=== PATIENT | male | born 1945 | race Caucasian/White ===

== ENCOUNTER 2018-03-07 22:00 | Inpatient (IN) | payer SELFPAY, OTHER ==
[2018-03-07] MEDS: ASPIRIN (EC) 325 MG TAB PO (23:00)
[2018-03-08 00:14] LABS: ADD MAN DIFF? NO
[2018-03-08 00:16] LABS: BASOPHILS % 0.3 % (0.0-2.0); EOSINOPHILS % 0.3 % (0.0-7.0); HEMATOCRIT 39.4 % (42.0-52.0); HEMOGLOBIN 13.9 g/dl (14.0-18.0); LYMPHOCYTES # 0.9 10^3/ul (0.8-2.9); LYMPHOCYTES % 6.9 % (15.0-51.0); MEAN CORPUSCULAR HEMOGLOBIN 31.2 pg (29.0-33.0); MEAN CORPUSCULAR HGB CONC 35.3 g/dl (32.0-37.0); MEAN CORPUSCULAR VOLUME 88.5 fl (82.0-101.0); MEAN PLATELET VOLUME 9.6 fl (7.4-10.4); MONOCYTE # 0.9 10^3/ul (0.3-0.9); MONOCYTES % 6.8 % (0.0-11.0); NEUTROPHIL # 11.1 10^3/ul (1.6-7.5); NEUTROPHILS % 85.2 % (39.0-77.0); PLATELET COUNT 165 10^3/UL (140-415); RED BLOOD COUNT 4.45 10^6/ul (4.70-6.10)
[2018-03-08 00:16] LABS: WHITE BLOOD COUNT 13.1 10^3/ul (4.8-10.8)
[2018-03-08 00:34] LABS: ALANINE AMINOTRANSFERASE 38 IU/L (13-69); ALBUMIN 3.7 g/dl (3.3-4.9); ALBUMIN/GLOBULIN RATIO 1.37; ALKALINE PHOSPHATASE 83 IU/L (42-121); ANION GAP 17 (8-16); ASPARTATE AMINO TRANSFERASE 21 IU/L (15-46); BILIRUBIN,INDIRECT 0.9 mg/dl (0-1.1); BILIRUBIN,TOTAL 0.9 mg/dl (0.2-1.3); BLOOD UREA NITROGEN 22 mg/dl (7-20); CALCIUM 8.8 mg/dl (8.4-10.2); CARBON DIOXIDE 24 mmol/L (21-31); CHLORIDE 100 mmol/L (97-110); CREATININE 2.04 mg/dl (0.61-1.24); GLUCOSE 135 mg/dl (70-220); LIPASE 40 U/L (23-300); POTASSIUM 3.3 mmol/L (3.5-5.1); SODIUM 138 mmol/L (135-144); TOTAL PROTEIN 6.4 g/dl (6.1-8.1)
[2018-03-08 00:37] LABS: INR 1.08; PROTIME 14.1 Sec (11.9-14.9); PT RATIO 1.1
[2018-03-08 00:38] LABS: PARTIAL THROMBOPLASTIN TIME 37.1 Sec (25.0-35.0)
[2018-03-08] MEDS: morphine 4 MG/ML VIAL IV ×2 (00:42→02:35)
[2018-03-08] MEDS: ONDANSETRON 4 MG INJ IV ×5 (00:42→22:30)
[2018-03-08] MEDS: SOD CHLORIDE 0.9% 500 ML IV (00:42)
[2018-03-08] MEDS ORDERED: ACETAMINOPHEN 325 MG TAB PO (04:00)
[2018-03-08] MEDS ORDERED: ALBUTEROL/IPRATROPIUM (NEB) 3 ML AMP HHN (04:00)
[2018-03-08] MEDS ORDERED: ONDANSETRON 4 MG INJ IV (04:00)
[2018-03-08] MEDS ORDERED: morphine 2 MG INJ IV (04:00)
[2018-03-08] MEDS ORDERED: NACL 0.9% 3 ML SYG IV ×2 (04:00→16:30)
[2018-03-08] MEDS: HYDROmorphONE 0.5 MG/0.5 ML SYG IV (05:08)
[2018-03-08] MEDS: METOPROLOL 25 MG TAB PO ×2 (06:16→22:47)
[2018-03-08] MEDS: D5W-0.45 NACL + KCL 20 MEQ 1,000 ML IV ×2 (06:39→16:30)
[2018-03-08] MEDS ORDERED: CEFAZOLIN 1 GM INJ ×2 (07:00→19:54)
[2018-03-08] MEDS ORDERED: SUCCINYLCHOLINE CHLORIDE 100 MG/5 ML SYG IV ×2 (07:00→19:54)
[2018-03-08 08:56] LABS: ADD MAN DIFF? NO
[2018-03-08 09:02] LABS: BASOPHIL # 0.1 10^3/ul (0.0-0.1); BASOPHILS % 0.5 % (0.0-2.0); EOSINOPHILS # 0.1 10^3/ul (0.0-0.5); EOSINOPHILS % 1.2 % (0.0-7.0); HEMATOCRIT 38.6 % (42.0-52.0); HEMOGLOBIN 13.3 g/dl (14.0-18.0); MEAN CORPUSCULAR HEMOGLOBIN 30.9 pg (29.0-33.0); MEAN CORPUSCULAR HGB CONC 34.5 g/dl (32.0-37.0); MEAN CORPUSCULAR VOLUME 89.8 fl (82.0-101.0); MEAN PLATELET VOLUME 9.5 fl (7.4-10.4); MONOCYTE # 0.9 10^3/ul (0.3-0.9); MONOCYTES % 8.3 % (0.0-11.0); NEUTROPHIL # 8.2 10^3/ul (1.6-7.5); NEUTROPHILS % 79.6 % (39.0-77.0); PLATELET COUNT 152 10^3/UL (140-415); RED CELL DISTRIBUTION WIDTH 13.2 % (11.5-14.5)
[2018-03-08 09:02] LABS: WHITE BLOOD COUNT 10.3 10^3/ul (4.8-10.8)
[2018-03-08] MEDS: CEFTRIAXONE 1 GM/50 ML (PMX) 50 ML IVPB (09:14)
[2018-03-08 09:26] LABS: ALANINE AMINOTRANSFERASE 39 IU/L (13-69); ALBUMIN 3.4 g/dl (3.3-4.9); ALKALINE PHOSPHATASE 76 IU/L (42-121); ANION GAP 15 (8-16); ASPARTATE AMINO TRANSFERASE 17 IU/L (15-46); BILIRUBIN,INDIRECT 0.8 mg/dl (0-1.1); BILIRUBIN,TOTAL 0.8 mg/dl (0.2-1.3); BLOOD UREA NITROGEN 22 mg/dl (7-20); CALCIUM 8.4 mg/dl (8.4-10.2); CARBON DIOXIDE 26 mmol/L (21-31); CHLORIDE 103 mmol/L (97-110); CREATININE 1.61 mg/dl (0.61-1.24); GLUCOSE 131 mg/dl (70-220); MAGNESIUM 2.3 mg/dl (1.7-2.5); PHOSPHORUS 3.5 mg/dl (2.5-4.9); POTASSIUM 3.6 mmol/L (3.5-5.1); SODIUM 140 mmol/L (135-144)
[2018-03-08 10:46] LABS: ADD UMIC YES; UR ASCORBIC ACID NEGATIVE (NEGATIVE); UR BILIRUBIN (Dip) NEGATIVE (NEGATIVE); UR BLOOD (Dip) 1+ mg/dL (NEGATIVE); UR CLARITY CLEAR (CLEAR); UR COLOR YELLOW (YELLOW); UR GLUCOSE (Dip) NEGATIVE (NEGATIVE); UR KETONES (Dip) NEGATIVE (NEGATIVE); UR LEUKOCYTE ESTERASE (Dip) TRACE Leu/ul (NEGATIVE); UR NITRITE (Dip) NEGATIVE (NEGATIVE); UR RBC 1 /HPF (0-5); UR SPECIFIC GRAVITY (Dip) 1.012 (1.003-1.030); UR TOTAL PROTEIN (Dip) NEGATIVE (NEGATIVE); UR UROBILINOGEN (Dip) NEGATIVE (NEGATIVE); UR WBC 3 /HPF (0-5)
[2018-03-08] MEDS: POTASSIUM CHLORIDE 100 ML IVPB (11:45)
[2018-03-08] MEDS: hydrALAzine 20 MG INJ IV (13:06)
[2018-03-08] MEDS ORDERED: HIP PAIN COCKTAIL VANCO INJ (15:00)
[2018-03-08] MEDS: CEFAZOLIN 2 GM/50 ML (PMX) 50 ML IVPB (15:30)
[2018-03-08] MEDS: TRANEXAMIC ACID 1,000 MG in NS 100 ML PRE-OP X1 IVPB (16:00)
[2018-03-08] MEDS: ACETAMINOPHEN 1000MG/100ML IV 100 ML IVPB (16:00)
[2018-03-08] MEDS: VANCOMYCIN 1 GM (PMX) 250 ML IVPB (16:00)
[2018-03-08] MEDS: oxyCODONE (CR) 10 MG TAB [oxyCONTIN] PO (16:00)
[2018-03-08] MEDS: DEXAMETHASONE 4 MG/ML 1 ML INJ IV (16:00)
[2018-03-08] MEDS: LANSOPRAZOLE 30 MG CAP PO (16:00)
[2018-03-08] MEDS: LACTATED RINGER'S 1,000 ML IV* (16:00)
[2018-03-08] MEDS ORDERED: NALOXONE (0.4 MG/ML) INJ IV (16:30)
[2018-03-08] MEDS ORDERED: NA PHOSPHATE/BIPHOS 133 ML ENEMA PR (16:30)
[2018-03-08] MEDS ORDERED: SENNA/DOCUSATE NA (8.6MG/50MG) TAB PO (16:30)
[2018-03-08] MEDS ORDERED: BISACODYL 10 MG SUPP PR (16:30)
[2018-03-08] MEDS ORDERED: DIPHENHYDRAMINE 50 MG INJ IV ×2 (16:30→20:00)
[2018-03-08] MEDS ORDERED: FENTAnyl 50 MCG/ML VIAL ×2 (17:05→20:02)
[2018-03-08] MEDS ORDERED: BUPIVACAINE 0.75%/DEXT (SPINAL) 2 ML INJ (17:14)
[2018-03-08] MEDS ORDERED: morphine SULFATE/PF (10 MG/10 ML) INJ (17:14)
[2018-03-08] MEDS: TRANEXAMIC ACID 1,000 MG in NS 100 ML INTRA-OP X1 IVPB (18:01)
[2018-03-08] MEDS: BACITRACIN 50000 UNITS INJ IRR (18:34)
[2018-03-08] MEDS: HIP PAIN COCKTAIL (CEFUROXIME) INJ (18:34)
[2018-03-08] MEDS: POLYMYXIN B 500000 UNIT INJ (18:34)
[2018-03-08] MEDS ORDERED: LIDOCAINE 100 MG SYRINGE (19:54)
[2018-03-08] MEDS ORDERED: PROPOFOL 20 ML (19:54)
[2018-03-08] MEDS ORDERED: SUGAMMADEX SODIUM 200 MG/2 ML VIAL IV (19:54)
[2018-03-08] MEDS ORDERED: ROCURONIUM 50 MG INJ (19:54)
[2018-03-08] MEDS ORDERED: METOCLOPRAMIDE 10 MG INJ IV (20:00)
[2018-03-08] MEDS ORDERED: MEPERIDINE 25 MG INJ IV (20:00)
[2018-03-08] MEDS ORDERED: FENTAnyl 50 MCG/ML VIAL IV ×2 (20:00)
[2018-03-08] MEDS ORDERED: HYDROmorphONE 1 MG/5 ML IV SYRINGE IV ×2 (20:00)
[2018-03-08] MEDS: CEFAZOLIN 1 GM/50 ML (PMX) 50 ML IVPB (20:59)
[2018-03-08] MEDS: ASPIRIN (EC) 325 MG TAB PO (21:06)
[2018-03-08] MEDS: DOCUSATE SODIUM 100 MG CAP PO (21:07)
[2018-03-09] MEDS: SOD CHLORIDE 0.9% 1,000 ML IV ×2 (01:01→04:35)
[2018-03-09] MEDS: D5W-0.45 NACL + KCL 20 MEQ 1,000 ML IV ×2 (02:30→12:30)
[2018-03-09] MEDS: CEFAZOLIN 1 GM/50 ML (PMX) 50 ML IVPB ×2 (05:44→13:42)
[2018-03-09] MEDS: ONDANSETRON 4 MG INJ IV ×2 (05:44→12:00)
[2018-03-09] MEDS: PANTOPRAZOLE (EC) 40 MG TAB PO (05:44)
[2018-03-09 05:52] LABS: ADD MAN DIFF? NO
[2018-03-09 06:09] LABS: BASOPHILS % 0.2 % (0.0-2.0); EOSINOPHILS % 0.2 % (0.0-7.0); HEMATOCRIT 30.9 % (42.0-52.0); HEMOGLOBIN 10.6 g/dl (14.0-18.0); LYMPHOCYTES # 1.3 10^3/ul (0.8-2.9); LYMPHOCYTES % 8.8 % (15.0-51.0); MEAN CORPUSCULAR HEMOGLOBIN 31.8 pg (29.0-33.0); MEAN CORPUSCULAR HGB CONC 34.3 g/dl (32.0-37.0); MEAN CORPUSCULAR VOLUME 92.8 fl (82.0-101.0); MEAN PLATELET VOLUME 9.9 fl (7.4-10.4); MONOCYTE # 1.2 10^3/ul (0.3-0.9); MONOCYTES % 8.1 % (0.0-11.0); NEUTROPHIL # 12.1 10^3/ul (1.6-7.5); PLATELET COUNT 146 10^3/UL (140-415); RED BLOOD COUNT 3.33 10^6/ul (4.70-6.10); RED CELL DISTRIBUTION WIDTH 13.5 % (11.5-14.5)
[2018-03-09 06:09] LABS: WHITE BLOOD COUNT 14.8 10^3/ul (4.8-10.8)
[2018-03-09 06:29] LABS: ANION GAP 14 (8-16); BLOOD UREA NITROGEN 22 mg/dl (7-20); CALCIUM 8.1 mg/dl (8.4-10.2); CARBON DIOXIDE 26 mmol/L (21-31); CHLORIDE 104 mmol/L (97-110); CREATININE 1.47 mg/dl (0.61-1.24); GLUCOSE 129 mg/dl (70-220); MAGNESIUM 2.1 mg/dl (1.7-2.5); PHOSPHORUS 3.6 mg/dl (2.5-4.9); POTASSIUM 4.1 mmol/L (3.5-5.1); SODIUM 140 mmol/L (135-144)
[2018-03-09] MEDS: CEFTRIAXONE 1 GM/50 ML (PMX) 50 ML IVPB (08:18)
[2018-03-09] MEDS: BETHANECHOL 25 MG TAB PO (08:18)
[2018-03-09] MEDS: HYDROCODONE/APAP (5/325) TAB PO ×2 (08:22→12:50)
[2018-03-09] MEDS ORDERED: HYDROCODONE/APAP (5/325) TAB PO (08:30)
[2018-03-09] MEDS: CELECOXIB 200 MG CAP PO ×2 (09:14→21:05)
[2018-03-09] MEDS: FERROUS FUMARATE (SR) TAB PO ×2 (09:14→21:04)
[2018-03-09] MEDS: METOPROLOL 25 MG TAB PO ×2 (09:15→21:05)
[2018-03-09] MEDS: ASPIRIN (EC) 325 MG TAB PO ×2 (09:15→21:05)
[2018-03-09] MEDS: DOCUSATE SODIUM 100 MG CAP PO ×2 (09:15→21:06)
[2018-03-09 11:41] LABS: ADD MAN DIFF? NO
[2018-03-09 11:43] LABS: WHITE BLOOD COUNT 12.2 10^3/ul (4.8-10.8)
[2018-03-09 11:43] LABS: BASOPHILS % 0.2 % (0.0-2.0); EOSINOPHILS # 0.1 10^3/ul (0.0-0.5); EOSINOPHILS % 0.5 % (0.0-7.0); HEMOGLOBIN 9.9 g/dl (14.0-18.0); LYMPHOCYTES # 1.2 10^3/ul (0.8-2.9); MEAN CORPUSCULAR HEMOGLOBIN 31.2 pg (29.0-33.0); MEAN CORPUSCULAR HGB CONC 34.1 g/dl (32.0-37.0); MEAN CORPUSCULAR VOLUME 91.5 fl (82.0-101.0); MEAN PLATELET VOLUME 9.8 fl (7.4-10.4); MONOCYTE # 0.8 10^3/ul (0.3-0.9); MONOCYTES % 6.3 % (0.0-11.0); NEUTROPHILS % 82.6 % (39.0-77.0); PLATELET COUNT 128 10^3/UL (140-415); RED BLOOD COUNT 3.17 10^6/ul (4.70-6.10); RED CELL DISTRIBUTION WIDTH 13.3 % (11.5-14.5)
[2018-03-09] MEDS ORDERED: TAMSULOSIN (SR) 0.4 MG CAP PO (21:00)
[2018-03-09] MEDS: TAMSULOSIN (SR) 0.4 MG CAP PO (21:04)
[2018-03-10] MEDS: PANTOPRAZOLE (EC) 40 MG TAB PO (05:29)
[2018-03-10] MEDS: MAGNESIUM HYDROXIDE 30ML CUP PO (05:50)
[2018-03-10 08:39] LABS: ADD UMIC YES; UR AMORPHOUS CRYSTAL FEW /HPF (NONE SEEN); UR ASCORBIC ACID NEGATIVE (NEGATIVE); UR BILIRUBIN (Dip) NEGATIVE (NEGATIVE); UR BLOOD (Dip) 3+ mg/dL (NEGATIVE); UR CLARITY SLIGHTLY CLOUDY (CLEAR); UR COLOR YELLOW (YELLOW); UR GLUCOSE (Dip) NEGATIVE (NEGATIVE); UR KETONES (Dip) NEGATIVE (NEGATIVE); UR LEUKOCYTE ESTERASE (Dip) TRACE Leu/ul (NEGATIVE); UR MUCUS FEW /HPF (NONE SEEN); UR NITRITE (Dip) NEGATIVE (NEGATIVE); UR RBC 7 /HPF (0-5); UR SPECIFIC GRAVITY (Dip) 1.005 (1.003-1.030); UR TOTAL PROTEIN (Dip) NEGATIVE (NEGATIVE); UR UROBILINOGEN (Dip) NEGATIVE (NEGATIVE); UR WBC 9 /HPF (0-5)
[2018-03-10] MEDS: FERROUS FUMARATE (SR) TAB PO ×2 (08:48→21:28)
[2018-03-10] MEDS: CELECOXIB 200 MG CAP PO ×2 (08:49→21:29)
[2018-03-10] MEDS: ASPIRIN (EC) 325 MG TAB PO ×2 (08:49→21:29)
[2018-03-10] MEDS: DOCUSATE SODIUM 100 MG CAP PO ×2 (08:49→21:00)
[2018-03-10] MEDS: HYDROCODONE/APAP (5/325) TAB PO ×2 (08:49→14:57)
[2018-03-10] MEDS: METOPROLOL 25 MG TAB PO ×2 (08:51→21:30)
[2018-03-10] MEDS: TAMSULOSIN (SR) 0.4 MG CAP PO (21:29)
[2018-03-11] MEDS: HYDROCODONE/APAP (5/325) TAB PO (02:26)
[2018-03-11 05:35] LABS: ADD MAN DIFF? NO
[2018-03-11 05:41] LABS: BASOPHIL # 0.1 10^3/ul (0.0-0.1); BASOPHILS % 0.5 % (0.0-2.0); EOSINOPHILS # 0.3 10^3/ul (0.0-0.5); EOSINOPHILS % 3.5 % (0.0-7.0); HEMATOCRIT 25.4 % (42.0-52.0); HEMOGLOBIN 8.7 g/dl (14.0-18.0); LYMPHOCYTES # 1.6 10^3/ul (0.8-2.9); LYMPHOCYTES % 17.6 % (15.0-51.0); MEAN CORPUSCULAR HEMOGLOBIN 31.3 pg (29.0-33.0); MEAN CORPUSCULAR HGB CONC 34.3 g/dl (32.0-37.0); MEAN CORPUSCULAR VOLUME 91.4 fl (82.0-101.0); MEAN PLATELET VOLUME 10.1 fl (7.4-10.4); MONOCYTE # 0.9 10^3/ul (0.3-0.9); MONOCYTES % 9.7 % (0.0-11.0); NEUTROPHIL # 6.3 10^3/ul (1.6-7.5); NEUTROPHILS % 67.6 % (39.0-77.0); PLATELET COUNT 140 10^3/UL (140-415); RED BLOOD COUNT 2.78 10^6/ul (4.70-6.10); RED CELL DISTRIBUTION WIDTH 13.4 % (11.5-14.5)
[2018-03-11 05:41] LABS: WHITE BLOOD COUNT 9.3 10^3/ul (4.8-10.8)
[2018-03-11 06:01] LABS: ANION GAP 12 (8-16); BLOOD UREA NITROGEN 15 mg/dl (7-20); CARBON DIOXIDE 27 mmol/L (21-31); CHLORIDE 105 mmol/L (97-110); CREATININE 0.82 mg/dl (0.61-1.24); GLUCOSE 122 mg/dl (70-220); MAGNESIUM 1.9 mg/dl (1.7-2.5); PHOSPHORUS 3.3 mg/dl (2.5-4.9); POTASSIUM 3.4 mmol/L (3.5-5.1); SODIUM 141 mmol/L (135-144)
[2018-03-11] MEDS: PANTOPRAZOLE (EC) 40 MG TAB PO (06:57)
[2018-03-11] MEDS: FERROUS FUMARATE (SR) TAB PO ×2 (08:36→20:23)
[2018-03-11] MEDS: CELECOXIB 200 MG CAP PO ×2 (08:36→20:24)
[2018-03-11] MEDS: METOPROLOL 25 MG TAB PO ×2 (08:37→20:27)
[2018-03-11] MEDS: DOCUSATE SODIUM 100 MG CAP PO ×2 (09:00→20:25)
[2018-03-11] MEDS: ASPIRIN (EC) 325 MG TAB PO ×2 (10:42→20:28)
[2018-03-11] MEDS: POTASSIUM CHLORIDE (SR) 20 MEQ TAB PO (10:42)
[2018-03-11] MEDS: TAMSULOSIN (SR) 0.4 MG CAP PO (20:24)
[2018-03-12] MEDS: hydrALAzine 20 MG INJ IV (02:24)
[2018-03-12] MEDS: PANTOPRAZOLE (EC) 40 MG TAB PO (06:19)
[2018-03-12] MEDS: FERROUS FUMARATE (SR) TAB PO ×2 (09:49→21:22)
[2018-03-12] MEDS: ASPIRIN (EC) 325 MG TAB PO ×2 (09:49→21:23)
[2018-03-12] MEDS: CELECOXIB 200 MG CAP PO ×2 (09:49→21:21)
[2018-03-12] MEDS: METOPROLOL 25 MG TAB PO ×2 (09:50→21:23)
[2018-03-12] MEDS: TAMSULOSIN (SR) 0.4 MG CAP PO (21:21)
[2018-03-13] MEDS: HYDROCODONE/APAP (5/325) TAB PO (04:37)
[2018-03-13] MEDS: FERROUS FUMARATE (SR) TAB PO ×2 (08:35→20:18)
[2018-03-13] MEDS: CELECOXIB 200 MG CAP PO ×2 (08:35→20:19)
[2018-03-13] MEDS: ASPIRIN (EC) 325 MG TAB PO ×2 (08:35→20:18)
[2018-03-13] MEDS: BETHANECHOL 25 MG TAB PO ×2 (08:35→11:14)
[2018-03-13] MEDS: METOPROLOL 25 MG TAB PO ×2 (08:36→20:20)
[2018-03-13 10:21] LABS: ADD UMIC YES; UR ASCORBIC ACID NEGATIVE (NEGATIVE); UR BACTERIA FEW /HPF (NONE SEEN); UR BILIRUBIN (Dip) NEGATIVE (NEGATIVE); UR BLOOD (Dip) 3+ mg/dL (NEGATIVE); UR CLARITY CLEAR (CLEAR); UR COLOR STRAW (YELLOW); UR GLUCOSE (Dip) NEGATIVE (NEGATIVE); UR KETONES (Dip) NEGATIVE (NEGATIVE); UR LEUKOCYTE ESTERASE (Dip) TRACE Leu/ul (NEGATIVE); UR NITRITE (Dip) NEGATIVE (NEGATIVE); UR RBC 1 /HPF (0-5); UR SPECIFIC GRAVITY (Dip) 1.004 (1.003-1.030); UR TOTAL PROTEIN (Dip) NEGATIVE (NEGATIVE); UR UROBILINOGEN (Dip) NEGATIVE (NEGATIVE); UR WBC 1 /HPF (0-5)
[2018-03-13 13:23] LABS: ADD UMIC YES; UR ASCORBIC ACID NEGATIVE (NEGATIVE); UR BACTERIA FEW /HPF (NONE SEEN); UR BILIRUBIN (Dip) NEGATIVE (NEGATIVE); UR BLOOD (Dip) 2+ mg/dL (NEGATIVE); UR CLARITY CLEAR (CLEAR); UR COLOR YELLOW (YELLOW); UR GLUCOSE (Dip) NEGATIVE (NEGATIVE); UR KETONES (Dip) NEGATIVE (NEGATIVE); UR LEUKOCYTE ESTERASE (Dip) NEGATIVE Leu/ul (NEGATIVE); UR NITRITE (Dip) NEGATIVE (NEGATIVE); UR RBC 12 /HPF (0-5); UR SPECIFIC GRAVITY (Dip) 1.008 (1.003-1.030); UR TOTAL PROTEIN (Dip) NEGATIVE (NEGATIVE); UR UROBILINOGEN (Dip) NEGATIVE (NEGATIVE); UR WBC 6 /HPF (0-5)
[2018-03-13] MEDS: TAMSULOSIN (SR) 0.4 MG CAP PO (20:18)
[2018-03-13] MEDS: DOXAZOSIN 2 MG TAB PO (20:19)
[2018-03-13 22:05] LABS: PROSTATE SPECIFIC ANTIGEN 24.5 ng/ml (0.0-4.0)
[2018-03-14] MEDS: FERROUS FUMARATE (SR) TAB PO ×2 (08:27→20:43)
[2018-03-14] MEDS: CELECOXIB 200 MG CAP PO ×2 (08:27→20:42)
[2018-03-14] MEDS: DOXAZOSIN 2 MG TAB PO ×2 (08:27→20:43)
[2018-03-14] MEDS: ASPIRIN (EC) 325 MG TAB PO ×2 (08:27→20:43)
[2018-03-14] MEDS: METOPROLOL 25 MG TAB PO ×2 (08:28→20:43)
[2018-03-14] MEDS: TAMSULOSIN (SR) 0.4 MG CAP PO (20:42)
[2018-03-15] MEDS: FERROUS FUMARATE (SR) TAB PO ×2 (08:49→20:49)
[2018-03-15] MEDS: METOPROLOL 25 MG TAB PO ×2 (08:49→20:50)
[2018-03-15] MEDS: ASPIRIN (EC) 325 MG TAB PO ×2 (08:49→20:50)
[2018-03-15] MEDS: CELECOXIB 200 MG CAP PO ×2 (08:49→20:49)
[2018-03-15] MEDS: DOXAZOSIN 2 MG TAB PO ×2 (08:50→21:04)
[2018-03-15] MEDS ORDERED: hydrALAzine 20 MG INJ IV (10:00)
[2018-03-15] MEDS: TAMSULOSIN (SR) 0.4 MG CAP PO (20:49)
[2018-03-15] MEDS: HYDROCODONE/APAP (5/325) TAB PO (22:10)
[2018-03-16] MEDS ORDERED: VITAMIN A & D 5 GM OINT PACKET TOP (03:42)
[2018-03-16] MEDS: CELECOXIB 200 MG CAP PO (09:01)
[2018-03-16] MEDS: DOXAZOSIN 2 MG TAB PO (09:01)
[2018-03-16] MEDS: FERROUS FUMARATE (SR) TAB PO (09:01)
[2018-03-16] MEDS: ASPIRIN (EC) 325 MG TAB PO (09:01)
[2018-03-16] MEDS: METOPROLOL 25 MG TAB PO (09:02)
== END 2018-03-16 16:50 | disposition home or self-care (01) | DRG 470 ==
LOC: MS1 03-08 05:15 → E/R 22:00 → MS1 03-08 01:55
PROC: 0SRB04A Replacement of Left Hip Joint with Ceramic on Polyethylene Synthetic Substitute, Uncemented, Open Approach (ICD-10-PCS; principal; 2018-03-08 16:52)
PROC: 0T9B70Z Drainage of Bladder with Drainage Device, Via Natural or Artificial Opening (ICD-10-PCS; 2018-03-08 16:52)
DX: S72.002A Fracture of unspecified part of neck of left femur, initial encounter for closed fracture (principal); N17.9 Acute kidney failure, unspecified; N39.0 Urinary tract infection, site not specified; W01.0XXA Fall on same level from slipping, tripping and stumbling without subsequent striking against object, initial encounter; I12.9 Hypertensive chronic kidney disease with stage 1 through stage 4 chronic kidney disease, or unspecified chronic kidney disease; N18.9 Chronic kidney disease, unspecified; M19.90 Unspecified osteoarthritis, unspecified site; N40.1 Benign prostatic hyperplasia with lower urinary tract symptoms; R33.8 Other retention of urine; R35.1 Nocturia; R39.15 Urgency of urination
CPT/HCPCS: 36415; 71045; 72170; 73500; 73510; 73530; 76775; 76856; 80048; 80053; 81001; 82306; 83690; 83735; 84100; 84153; 84154; 85025; 85610; 85730; 87086; 88304; 88311; 93306; 96374; 96375; 96376; 97110; 97116; 97163; 97165; 97530; 99285-25

== ENCOUNTER → 2018-03-20 | Outpatient (CLI) | payer SELFPAY, OTHER | END | disposition home or self-care (01) | LOC: HKI 11:21 | DX: S72.002D Fracture of unspecified part of neck of left femur, subsequent encounter for closed fracture with routine healing (principal); X58.XXXD Exposure to other specified factors, subsequent encounter; Z96.642 Presence of left artificial hip joint | CPT/HCPCS: 73502 ==